=== PATIENT | male | born 1975 | race African-American/Black ===

== ENCOUNTER 2023-10-12 19:54 | Emergency (ER) | payer OTHER ==
[~2023-10-12] VITALS: Ht 195.6 cm; Wt 136.0 kg
[2023-10-12 20:13] VITALS: TEMP 98; O2SAT 100
[2023-10-12 21:38] LABS: BASOPHILS % 0.2 % (0.0-2.0); EOSINOPHILS % 1.8 % (0.0-5.0); HEMATOCRIT. 42.5 % (42.0-52.0); HEMOGLOBIN. 14.1 g/dL (14.0-18.0); LYMPHOCYTES % 13.4 % (20.0-50.0); MEAN CORPUSCULAR HEMOGLOBIN 27.9 pg (28.0-32.0); MEAN CORPUSCULAR HGB CONC 33.3 g/dL (31.0-37.0); MEAN CORPUSCULAR VOLUME 83.9 fL (80.0-94.0); MEAN PLATELET VOLUME 9.1 fl (7.4-10.4); NEUTROPHILS % 80.6 % (40.0-76.0); PLATELET 202 x1000/uL (130-400); RED BLOOD CELL COUNT 5.07 mill/uL (4.7-6.1); RED CELL DISTRIBUTION WIDTH 14.2 % (11.6-14.6); WHITE BLOOD COUNT 8.1 x1000/uL (4.5-11.0)
[2023-10-12 21:42] LABS: CHLORIDE 105 mEq/L (98-107); POTASSIUM 3.8 mEq/L (3.5-5.1); SODIUM 139 mEq/L (136-145)
[2023-10-12 21:43] LABS: CALCIUM 9.3 mg/dL (8.7-10.4); CARBON DIOXIDE 27 mEq/L (21-32)
[2023-10-12 21:48] LABS: CREATININE 1.1 mg/dL (0.6-1.3); GLUCOSE 122 mg/dL (70-105); UREA NITROGEN BLOOD 10 mg/dL (9-23)
[2023-10-12 21:50] LABS: ALANINE AMINOTRANSFERASE 24 IU/L (10-49); ALBUMIN 4.5 g/dL (3.2-4.8); ASPARTATE AMINOTRANSFERASE 19 IU/L (<34); BILIRUBIN DIRECT 0.3 mg/dL (<=3.0)
[2023-10-12 21:51] LABS: PROTEIN TOTAL 7.3 g/dL (6.0-8.3)
[2023-10-13] MEDS ORDERED: FAMO-135 MT (00:19)
[2023-10-13] MEDS: FAMOTIDINE 20MG TABLET PO ONE (00:29)
[2023-10-13] MEDS: ONDANSETRON 4MG ODT PO ONE (00:30)
[2023-10-13 01:03] VITALS: BP 120/84; PULSE 78; RESP 14
== END 2023-10-13 01:04 | disposition home or self-care (01) ==
LOC: ER 19:54
DX: K80.20 Calculus of gallbladder without cholecystitis without obstruction (principal); J45.909 Unspecified asthma, uncomplicated; E11.9 Type 2 diabetes mellitus without complications
CPT/HCPCS: 99284; 76705; 80076; 80048; 83690; 85025; 36415; 93005; Q0162

== ENCOUNTER 2024-08-31 23:15 | Emergency (ER) | payer OTHER ==
[~2024-08-31] VITALS: Ht 195.6 cm; Wt 129.0 kg
[~2024-08-31 23:15] MED LIST: FAMO-135 MT
[2024-08-31 23:35] VITALS: O2SAT 99
[2024-09-01 00:54] LABS: BASOPHILS % 0.4 % (0.0-2.0); EOSINOPHILS % 1.9 % (0.0-5.0); HEMATOCRIT. 41.7 % (42.0-52.0); HEMOGLOBIN. 13.8 g/dL (14.0-18.0); LYMPHOCYTES % 29.8 % (20.0-50.0); MEAN PLATELET VOLUME 9.3 fl (7.4-10.4); MONOCYTES % 5.5 % (2.0-8.0); NEUTROPHILS % 62.4 % (40.0-76.0); PLATELET 176 x1000/uL (130-400); RED BLOOD CELL COUNT 4.95 mill/uL (4.7-6.1); RED CELL DISTRIBUTION WIDTH 13.7 % (11.6-14.6)
[2024-09-01 01:07] LABS: CREATININE 1.3 mg/dL (0.6-1.3)
[2024-09-01 01:08] LABS: TROPONIN I HIGH SENSITIVITY < 4 ng/L (3.0-53); UREA NITROGEN BLOOD 11 mg/dL (9-23)
[2024-09-01 02:39] LABS: INR 0.9
[2024-09-01 02:50] VITALS: BP 117/83; PULSE 72; RESP 12; TEMP 36.7; O2SAT 99
== END 2024-09-01 02:55 | disposition home or self-care (01) ==
LOC: ER 23:49
DX: R07.89 Other chest pain (principal); E11.9 Type 2 diabetes mellitus without complications; J45.909 Unspecified asthma, uncomplicated; F12.90 Cannabis use, unspecified, uncomplicated; Z79.899 Other long term (current) drug therapy
CPT/HCPCS: 36415; 71045; 80048; 83880; 84484; 85025; 93005; 99285